=== PATIENT | male | born 1980 ===

== ENCOUNTER 2019-01-13 14:35 | Emergency (ER) | payer OTHER ==
[2019-01-13 14:39] VITALS: TEMP 98
[2019-01-13 14:58] LABS: BASOPHILS % (AUTO) 0 % (0-3); EOSINOPHILS % (AUTO) 0 % (0-9); HEMATOCRIT 28 % (39-53); LYMPHOCYTES % (AUTO) 10.8 % (10-50); MEAN CORPUSCULAR HEMOGLOBIN 31.7 pg (27.0-32.0); MEAN CORPUSCULAR HGB CONC 32.3 gm/dl (32.0-36.0); MEAN CORPUSCULAR VOLUME 98 fL (80-100); MONOCYTES % (AUTO) 5.1 % (0-12); NEUTROPHILS % (AUTO) 83.9 % (37-80)
[2019-01-13 15:12] LABS: CALCIUM 9.1 mg/dl (8.5-10.1); CARBON DIOXIDE 17.7 mEq/L (21-32); CREATININE 1.69 mg/dl (0.80-1.30); POTASSIUM 4.6 mMol/L (3.5-5.1); TOTAL PROTEIN 7.6 gm/dl (6.4-8.2)
[2019-01-13 16:07] VITALS: BP 94/64; PULSE 90; RESP 14; O2SAT 99
== END 2019-01-13 16:01 | DRG 434 ==
LOC: ED 14:35
DX: K74.60 Unspecified cirrhosis of liver (principal)
CPT/HCPCS: 36415; 80053; 85025; 99282